=== PATIENT | female | born 1995 | race American Indian/Alaskan Native ===

== ENCOUNTER 2021-01-26 06:07 | Outpatient (CLI) | payer BC, MEDICAID ==
[2021-01-26 07:07] LABS: Basophils % (Auto) 0.4 % (0.0-1.8); Eosinophils # (Auto) 0.1 K/mm3 (0.0-0.4); Eosinophils % (Auto) 1.8 % (0.0-4.3); Hematocrit 36.9 % (30.3-42.9); Hemoglobin 12.1 gm/dl (10.1-14.3); Lymphocytes # (Auto) 1.8 K/mm3 (1.2-5.4); Lymphocytes % (Auto) 32.6 % (13.4-35.0); Mean Corpuscular HGB Conc 33 % (30-34); Mean Corpuscular Volume 83 fl (79-97); Monocytes # (Auto) 0.4 K/mm3 (0.0-0.8); Monocytes % (Auto) 6.9 % (0.0-7.3); Platelet Count 244 K/mm3 (140-440); Red Blood Count 4.46 M/mm3 (3.65-5.03); Red Cell Distribution Width 15.7 % (13.2-15.2)
--- NOTE | 2021-01-26 07:46 | Anesthesia Consultation ---
Anesthesia Consult and Med Hx Date of service: 01/26/21 - Airway Anesthetic Teeth Evaluation: Good ROM Head & Neck: Adequate Mental/Hyoid Distance: Adequate Mallampati Class: Class II Intubation Access Assessment: Probably Good - Pulmonary Exam CTA: Yes - Cardiac Exam Cardiac Exam: RRR - Pre-Operative Health Status ASA Pre-Surgery Classification: ASA2 Proposed Anesthetic Plan: Spinal - Pulmonary Hx Asthma: No COPD: No Hx Pneumonia: No - Cardiovascular System Hx Hypertension: No - Central Nervous System Hx Seizures: No Hx Psychiatric Problems: No - Endocrine Hx Renal Disease: No Hx End Stage Renal Disease: No Hx Hypothyroidism: No Hx Hyperthyroidism: No - Hematic Hx Anemia: No Hx Sickle Cell Disease: No - Other Systems Hx Alcohol Use: No
--- NOTE | 2021-01-26 07:47 | Anesthesia Day of Surgery ---
Anesthesia Day of Surgery - Day of Surgery Patient Examined: Yes Patient H&P Reviewed: Yes Patient is NPO: Yes
[2021-01-26] MEDS ORDERED: LACTATED RINGERS 1,000 ML IV SCH (08:00)
[2021-01-26] MEDS ORDERED: FAMOTIDINE 20 MG/2 ML INJ IV SCH (08:00)
[2021-01-26] MEDS ORDERED: BICITRA ORAL LIQD 30ML PO SCH (08:00)
[2021-01-26] MEDS ORDERED: METOCLOPRAMIDE 10 MG/2 ML INJ IV NR (08:00)
[2021-01-26] MEDS ORDERED: BICITRA ORAL LIQD 30ML ONE (08:11)
[2021-01-26] MEDS ORDERED: ceFAZolin/STERILE WATER 2 GM/20 ML SYRINGE IV NR (09:00)
[2021-01-26] MEDS ORDERED: LACTATED RINGERS 1,000 ML ONE (09:01)
--- NOTE | 2021-01-26 09:38 | Post Anesthesia Evaluation ---
- Post Anesthesia Evaluation Patient Participated: Yes Airway Patent: Yes Stable Respiratory Function: Yes Nausea/Vomiting: No Temp > 96.8F: Yes Pain Manageable: Yes Adequeate Hydration: Yes Anesthesia Complications: No Block Receding Appropriately: Yes
--- NOTE | 2021-01-26 09:41 | Procedure Note ---
Date of procedure: 01/26/21 Pre-op diagnosis: Cervical incompetence Post-op diagnosis: same Procedure: Cervical cerclage Prolapsed membranes noted at start of procedure; Manzanares catheter balloon placed to move membranes proximally. No. 5 Ethibond suture placed in pursestring fashion; PPROM note during placement of 6 to 3 o'clock [3rd] suture. Anesthesia: spinal Surgeon: SOLIS BRICEÑO Estimated blood loss: minimal Pathology: none Condition: stable Disposition: floor (Discussed options with patient directly and with FOB by tele phone, including poor prognosis and risk of intrauterine infection with PPROM. Suture removed at their direction.)
[2021-01-26 11:32] VITALS: BP 115/56
--- NOTE | 2021-01-26 12:53 | Event Note ---
Date: 01/26/21 I was at bedside to discuss with pt and her plan of care. I d/w both options of expectant management vs termination of the . I d/w that at time she does have premature ROM and that she is at increased risk for infection and delivery but that at this time she has no s/sx of chorio and does not have an indication for delivery. I d/w what an inevitable . Pt and requested time to discuss in private with each other what they desired. I d/w pt that I am not able to predict if and when she will delivery or develop infection. I also mention that in some instances there is a "resealing" of the membranes with expectant management but that any s/sx of chorio is an indication for delivery regardless of gestational age. Pt again expressed understanding and will communicate with provider once she has made a decision.
--- NOTE | 2021-01-26 13:15 | Event Note ---
Date: 01/26/21 Pt and desire expectant management at this time. S/sx of infection and chorio/ infection/ labor were all d/w both. Pt will f/u in the office in one week. All questions were addressed and answered.
== END 2021-01-26 13:40 | disposition home or self-care (01) ==
LOC: TRG 06:07 → APU 06:09 → EDSTATUS 07:30 → LD 09:21 → TRG 13:40
PROVIDERS: ATTEND Obstetrics & Gynecology Maternal & Fetal Medicine
DX: O34.32 Maternal care for cervical incompetence, second trimester (principal); Z3A.17 17 weeks gestation of pregnancy
CPT/HCPCS: 36415; 59320; 85025; 86850; 86900; 86901; 96360; J2765; J7120